=== PATIENT | female | born 1970 | race African-American/Black ===

== ENCOUNTER 2021-06-06 07:48 | Day surgery (SDC) | payer OTHER ==
[2021-06-02 13:11] VITALS: BMI 28.9
[2021-06-06] MEDS ORDERED: LIDOCAINE HCL/PF 2% SDV 5ML VIAL ONE (08:10)
[2021-06-06] MEDS ORDERED: PROPOFOL 20 ML ONE ×4 (08:10)
[2021-06-06 09:53] VITALS: TEMP 97.8
[2021-06-06 10:08] VITALS: BP 106/68; PULSE 71
== END 2021-06-06 10:25 | disposition home or self-care (01) ==
LOC: FASU-ENDO 07:48
PROVIDERS: ATTEND Internal Medicine Gastroenterology
PROC: 0DJD8ZZ Inspection of Lower Intestinal Tract, Via Natural or Artificial Opening Endoscopic (ICD-10-PCS; principal; 2021-06-06 09:11)
DX: Z12.11 Encounter for screening for malignant neoplasm of colon (principal); Z80.0 Family history of malignant neoplasm of digestive organs
CPT/HCPCS: 82962; 84703